=== PATIENT | female | born 1965 | race Caucasian/White ===

== ENCOUNTER → 2020-10-16 09:11 | Outpatient (BNVA) | payer MEDICARE, SELFPAY | PROVIDERS: PCP Family Medicine; Visit Provider Nurse Practitioner Family | DX: F41.9 Anxiety disorder, unspecified (principal); F32.9 Major depressive disorder, single episode, unspecified; I10 Essential (primary) hypertension; L08.9 Local infection of the skin and subcutaneous tissue, unspecified; F42.4 Excoriation (skin-picking) disorder | CPT/HCPCS: 80053; 80061; 84443; 85025 ==

== ENCOUNTER → 2021-01-22 09:52 | Outpatient (BNVA) | payer MEDICARE, MEDICAID, SELFPAY | PROVIDERS: PCP Nurse Practitioner Family; Visit Provider Nurse Practitioner Family | DX: M25.562 Pain in left knee (principal) | CPT/HCPCS: 73562 ==

== ENCOUNTER → 2021-02-12 13:51 | Outpatient (BNVA) | payer MEDICARE, MEDICAID, SELFPAY | PROVIDERS: PCP Nurse Practitioner Family; Referring Provider Nurse Practitioner Family; Visit Provider Orthopaedic Surgery | DX: M25.569 Pain in unspecified knee (principal); M17.12 Unilateral primary osteoarthritis, left knee | CPT/HCPCS: 73560 ==

== ENCOUNTER 2022-01-20 13:44 | Outpatient (CLI) | payer MEDICARE, MEDICAID, SELFPAY ==
--- NOTE | 2022-01-20 13:59 | CT_ITS ---
WS: [id number] CT CHEST, ABDOMEN AND PELVIS WITH CONTRAST. HISTORY: MALIGNANT NEOPLASM OF R KIDNEY TECHNIQUE: Contiguous 5 mm axial imaging performed through the chest, abdomen and pelvis with IV cont rast, oral contrast has been provided. Coronal and sagittal reformats chest. Coronal and sagittal ref ormats through the abdomen and pelvis. All CT scans at [facility] use at least one of these d ose optimization techniques: automated exposure control; mA and/or kV adjustment per patient size (in cludes targeted exams where dose is matched to clinical indication); or iterative reconstruction. CONTRAST: Visipaque 320; 95 mL IV. DLP: 1678.16 mGy.cm COMPARISON: 07/27/[address]: Mild pulmonary hyperexpansion with chronic emphysema, greatest in the upper lobes. No mass or nodule. No pneumonia. No mediastinal or hilar adenopathy. Heart size is normal. No pericardial or pleural effusions. Abdomen CT: Mildly enlarged liver with mild hepatic steatosis. No mass, metastatic disease or bile du ct dilatation. Normal portal vein. Gallbladder has been surgically removed. Normal pancreas and splee n. Prior RIGHT nephrectomy. Normal size LEFT kidney. There are multiple cystic masses in the central renal pelvis. These masses were present on the prior study from 2018. No solid mass identified. These may be parapelvic cysts. Mild calyceal prominence suggestive may be underlying very minimal obstruct ion of the kidney which is not progressed. No renal atrophy. LEFT adrenal glands are normal. Atherosc lerosis aorta. Mild stenosis proximal celiac axis. Normally distended stomach. No small bowel obstruction. Diffuse constipation. The appendix is normal. No ascites, mesenteric or pelvic adenopathy. Postsurgical changes along the anterior abdominal wall. Marked atrophy of the RIGHT rectus abdominous . Pelvic CT: Well-distended urinary bladder. No free fluid or adenopathy. Prior hysterectomy. Sclerotic foci LEFT hip, unchanged. CT/CT chest abd pel w con* IMPRESSION: 1. Status post RIGHT nephrectomy. No recurrent mass in the renal bed and no ad enopathy. 2. No metastatic lesions within the chest, abdomen or pelvis. 3. Prior hysterectomy and cholecystectomy. 4. No solid mass LEFT kidney. There are multiple cysts within the renal pelvis . There is minimal calyceal dilatation suggesting there may be a partial, chron ic UP junction obstruction. Very similar to the study from 07/27/2018. No renal atrophy. 5. Chronic emphysema.
[2022-01-20] MEDS: barium sulfate 450 mL Oral Susp PO (14:05)
[2022-01-20] MEDS: iodixanol 320 mg/mL 100mL Btl IV (15:38)
[2022-01-20 16:07] LABS: Basophils # 0.1 10^3/uL (0.0-0.1); Basophils % 0.7 %; Eosinophils # 0.2 10^3/uL (0.0-0.8); Hemoglobin 14.7 g/dL (11.5-15.3); Lymphocytes # 2.8 10^3/uL (0.8-4.8); Mean Corpuscular HGB Conc 30.6 g/dL (30.0-36.0); Mean Corpuscular Hemoglobin 30.6 pg (28.0-34.0); Mean Platelet Volume 10.6 fL (7.4-10.4); Monocytes # 0.6 10^3/uL (0.2-0.9); Monocytes % 5.5 %; Neutrophils % 67.4 %; Nucleated Red Blood Cells % 0 %; Platelet Count 323 10^3/cmm (130-400); White Blood Count 11.7 10^3/uL (4.0-10.0)
[2022-01-20 16:31] LABS: Albumin Level 3.4 g/dL (3.5-5.2); Blood Urea Nitrogen 7 mg/dL (6-20); Calcium 8.6 mg/dL (8.5-10.5); Carbon Dioxide 16 mmol/L (22-29); Glomerular Filtration Rate 56.9 mL/min (90-130); Glucose 74 mg/dL (65-115); Phosphorus 3.3 mg/dL (2.5-4.5)
[2022-01-20 17:03] LABS: Anion Gap 21.3 (5-19); Chloride 105 mmol/L (98-107); Potassium 5.3 mmol/L (3.5-5.1); Sodium 137 mmol/L (136-145)
== END 2022-01-20 13:45 | disposition home or self-care (01) ==
LOC: RAD 13:44
PROVIDERS: PCP Nurse Practitioner Family; Visit Provider Nurse Practitioner
DX: C64.1 Malignant neoplasm of right kidney, except renal pelvis (principal); Z90.5 Acquired absence of kidney; Z90.710 Acquired absence of both cervix and uterus; Z90.49 Acquired absence of other specified parts of digestive tract; J43.9 Emphysema, unspecified
CPT/HCPCS: 71260; 74177; 80069; 85025

== ENCOUNTER 2022-08-06 13:27 | Outpatient (CLI) | payer MEDICARE, MEDICAID, SELFPAY ==
[2022-08-06 14:00] VITALS: PULSE 109; RESP 18; O2SAT 97
[2022-08-06] MEDS: albuterol 2.5 mg/3 mL Neb INHALATION (14:00)
[2022-08-06 14:05] VITALS: PULSE 103
== END 2022-08-06 13:28 | disposition home or self-care (01) ==
PROVIDERS: PCP Nurse Practitioner Family; Visit Provider Family Medicine
DX: J44.1 Chronic obstructive pulmonary disease with (acute) exacerbation (principal)
CPT/HCPCS: 94060; 94726; 94729

== ENCOUNTER → 2022-11-05 10:24 | Outpatient (BNVA) | payer MEDICARE, MEDICAID, SELFPAY | PROVIDERS: PCP Family Medicine; Visit Provider Internal Medicine Pulmonary Disease | DX: R06.02 Shortness of breath (principal); J30.89 Other allergic rhinitis | CPT/HCPCS: 36415; 82785; 85025; 86003; 99204 ==

== ENCOUNTER → 2023-06-26 09:59 | Outpatient (BNVA) | payer MEDICARE, MEDICAID, SELFPAY | PROVIDERS: PCP Family Medicine; Referring Provider Family Medicine; Visit Provider Physician Assistant | DX: M25.511 Pain in right shoulder (principal); M75.41 Impingement syndrome of right shoulder | CPT/HCPCS: 20610; 73030; 99213; J3301 ==

== ENCOUNTER 2023-07-29 11:22 | Emergency (ER) | payer MEDICARE, MEDICAID, SELFPAY ==
[2023-07-29 11:31] VITALS: BP 141/83; PULSE 92; RESP 16; TEMP 36.6; O2SAT 94
--- NOTE | 2023-07-29 11:38 | XR_ITS ---
WS: [id number] Right knee, 3 views, 07/29/2023 Clinical Data: pain Comparison: None. Findings: No fractures or dislocations are seen. There is joint space narrowing medially and laterally with a s pur of the medial femoral condyle. The posterior right patella shows mild spurring. The soft tissues are unremarkable. Impression: Minimal osteoarthritis of the right knee Kellgren-Everardo Classification: grade 2 (minimal): definite osteophytes and possible joint space na rrowing
--- NOTE | 2023-07-29 12:36 | ED_ITS ---
HPI - Extremity Problem 2 General: Chief complaint: Extremity Injury, Upper Stated complaint: Right leg pain Time Seen by Provider: 07/29/23 11:38 Source: patient Mode of arrival: ambulatory History of Present Illness: 57-year-old female who presents to the e mergency room with complaints of right knee pain. She fell and twisted her knee 1 week ago had a popping sensation she has been ambulating on it since she has follow-up set up up with orthopedics she has not yet seen them. Initial x-rays and she was seen after the fall were normal. MD Complaint: joint pain Onset (ago): week(s) (1) Pain Consistency: constant Location: right and knee Quality: sharp Relieving factors: rest Exacerbating factors: range of motion, weight bearing, walking and palpation Associated symptoms: Deny arthralgias, chest pain, fever(s), myalgias, rash or short of breath Review of Systems 2 Const: Denies: fever(s) or chills Card: Denies: chest pain Musc: Reports: joint pain Skin/Breast: Denies: rash PFSH ED 2 PFSH: Medical History Environmental and seasonal allergies GERD (gastroesophageal reflux disease) PTSD (post-traumatic stress disorder) Surgical History Hx of cholecystectomy Hx of kidney removal right Hx of section Family History Father Hypertension Mother Hypertension Social History Smoking and tobacco/nicotine status: current every day tobacco/nicotine user cigarettes Packs smoked per day: 1 Years cigarettes smoked: 42 [ Other cigarette details: Started at 15] Second hand smoke exposure: No Alcohol intake: never Substance/Drug Use: current Substance/Drug use frequency: daily Adopted: No Caregiver/support person: No Lives independently: Yes Household members: significant other Housing: Manufactured/Mobile home Marital status: Single Number of children: 2 Highest education level completed: High School Graduate Pets and animals: No Course 2 Vital Signs: Vital signs: Vital Signs Temperature 98 F 07/29/23 13:14 Pulse Rate 92 07/29/23 13:14 Respiratory Rate 16 07/29/23 13:14 Blood Pressure 141/83 07/29/23 13:14 Pulse Oximetry 94 07/29/23 13:14 Oxygen Delivery Me thod Room Air 07/29/23 11:31 MDM - Extremity (Nontraumatic) Medical Decision Making Knee x-ray is negative. White count at 12.6, no significant left shift. Sed rate and CRP are not significantly elevated examination of the knee did not show evidence of large joint effusion or acute infection is not red or hot to the touch. Discharge patient home on a knee immobilizer and crutches. Her creatinine is normal she states she only has a solitary kidney. For short time she should be able to do a mild NSAID will give her diclofenac 75 twice a day and she has follow-up with set up with Ortho she should keep that appointment and remove keep the knee nonweightbearing until then. On exam there is no sign of DVT either. Medical Records I reviewed the patient's medical records. Lab Data I reviewed the patient's lab results. 07/29/23 12:56 07/29/23 12:56 Laboratory Results WBC 12.38 10^3/uL (3.29-11.43) H 07/29/23 12:56 RBC 5.04 10^6/uL (3.85-5.65) 07/29/23 12:56 Hgb 15.70 g/dL (11.27-16.99) 07/29/23 12:56 Hct 47.2 % (36-47) H 07/29/23 12:56 MCV 93.7 fl (85-98) 07/29/23 12:56 MCH 31.2 pg (27-33) 07/29/23 12:56 MCHC 33.3 g/dL (30-55) 07/29/23 12:56 RDW 13.5 % (12.1-15.1) 07/29/23 12:56 Plt Count 347 10^3/cmm (157-399) 07/29/23 12:56 MPV 9.2 fL (7.4-10.4) 07/29/23 12:56 Neut % (Auto) 76.0 % 07/29/23 12:56 Lymph % (Auto) 17.4 % 07/29/23 12:56 [place] % (Auto) 4.3 % 07/29/23 12:56 Eos % (Auto) 1.4 % 07/29/23 12:56 Baso % (Auto) 0.7 % 07/29/23 12:56 Neut # (Auto) 9.41 10^3/uL (1.8-7.7) H 07/29/23 12:56 Lymph # (Auto) 2.2 10^3/uL (0.8-4.8) 07/29/23 12:56 [place] # (Auto) 0.5 10^3/uL (0.2-0.9) 07/29/23 12:56 Eos # (Auto) 0.2 10^3/uL (0.0-0.8) 07/29/23 12:56 Baso # (Auto) 0.1 10^3/uL (0.0-0.1) 07/29/23 12:56 Nucleated RBC % (auto) 0 % 07/29/23 12:56 Nucleated RBCs # 0.0 /100WBC 07/29/23 12:56 ESR 16 mm/hr (0-15) H 07/29/23 12:56 Sodium 138 mmol/L (136-145) 07/29/23 12:56 Potassium 3.9 mmol/L (3.5-5.1) 07/29/23 12:56 Chloride 103 mmol/L (98-107) 07/29/23 12:56 Carbon Dioxide 27 mmol/L (22-29) 07/29/23 12:56 Anion Gap 11.9 (5-19) 07/29/23 12:56 BUN 11 mg/dL (6-20) 07/29/23 12:56 Creatinine 0.9 mg/dL (0.5-0.9) 07/29/23 12:56 GFR Calculation 64.1 mL/min (90-130) L 07/29/23 12:56 Glucose 110 mg/dL (65-115) 07/29/23 12:56 Calculated Osmolality 286 mOsm/kg (285-295) 07/29/23 12:56 Calcium 9.0 mg/dL (8.5-10.5) 07/29/23 12:56 Total Bilirubin 0.3 mg/dL (0.15-1.2) 03/20/24 12:56 AST 21 U/L (0-32) 07/29/23 12:56 ALT 22 U/L (0-33) 07/29/23 12:56 Alkaline Phosphatase 125 U/L (35-105) H 07/29/23 12:56 C-Reactive Protein 3.0 mg/L (0.0-4.9) 07/29/23 12:56 Total Protein 7.4 g/dL (6.6-8.7) 07/29/23 12:56 Albumin 3.7 g/dL (3.5-5.2) 07/29/23 12:56 Globulin 3.7 g/dL (1.3-4.6) 07/29/23 12:56 All radiology interpretation(s) finalized by discharge Discharge Plan Discharge Patient Disposition: Home Clinical Impression: Sprain of right knee Condition: Stable Prescriptions: New diclofenac sodium 75 mg tablet,delayed release (DR/EC) 75 mg PO Q12H PRN (Reason: pain) Qty: 20 0RF No Action pregabalin 100 mg capsule 100 mg PO BID paroxetine HCl 20 mg tablet 20 mg PO DAILY 30 Days Qty: 30 2RF Trelegy Ellipta 100-62.5-25 mcg blister with device 1 inh inhalation DAILY hydroxyzine HCl 50 mg tablet 50 mg PO DAILY alprazolam 0.5 mg tablet 0.5 mg PO DAILY loratadine [Allergy Relief (loratadine)] 10 mg tablet 10 mg PO DAILY Atrovent HFA 17 mcg/actuation HFA aerosol inhaler 2 puff inhalation Q8H PRN (Reason: shortness of breath or wheezing) Qty: 12.9 6RF montelukast 10 mg tablet 10 mg PO DAILY Qty: 30 2RF lisinopril 20 mg tablet 20 mg PO DAILY Qty: 30 2RF albuterol sulfate 90 mcg/actuation HFA aerosol inhaler 2 puff inhalation Q4H PRN (Reason: shortness of breath or wheezing) Qty: 6.7 2RF cyclobenzaprine 10 mg tablet 10 mg PO TID omeprazole 40 mg capsule,delayed release(DR/EC) See Rx Instructions .ROUTE .COMPLEX Rx Instructions: TAKE ONE CAPSULE BY MOUTH 30 MINUTES BEFORE MORNING MEAL ONCE DAILY baclofen 10 mg tablet 10 mg PO TID prazosin 2 mg capsule 2 mg PO BEDTIME Mavyret 100-40 mg tablet 3 tab PO DAILY Discharge Orders: Discharge ED (Routine); Ordered 07/29/23 Ordered By: Alexandr Prasad Referrals: JAIME WEBER MD [Primary Care Provider] - Discharge Diet: Usual diet Discharge Activity: Limit activity as instructed Patient Instructions: Opioid Safety, Pain Management Activity Restrictions/Additional Instructions: Thank you for choosing [facility] for your healthcare needs today. Please realize this is an emergency room and that we are providing you with a medical screening exam and this may not be complete and all inclusive of all the testing and or work up that you may need to determine your ailment or severity of your illness. It is very important that you follow up as instructed or that you return to the Emergency Department should you have concerns or if your condition changes or worsens in any way. You are seen emergency room today for right knee pain. X-ray shows arthritic changes but no acute fractures. Recommend knee immobilizer and nonweightbearing till follow-up with orthopedics. For a short time you can use diclofenac 1 tablet twice a day. Coding Level of Care Code ED High Pressure Cleaner for Chey Alvarez
[2023-07-29 13:00] LABS: Basophils # 0.1 10^3/uL (0.0-0.1); Basophils % 0.7 %; Eosinophils # 0.2 10^3/uL (0.0-0.8); Eosinophils % 1.4 %; Hematocrit 47.2 % (36-47); Lymphocytes # 2.2 10^3/uL (0.8-4.8); Lymphocytes % 17.4 %; Mean Corpuscular HGB Conc 33.3 g/dL (30-55); Mean Corpuscular Hemoglobin 31.2 pg (27-33); Mean Corpuscular Volume 93.7 fl (85-98); Mean Platelet Volume 9.2 fL (7.4-10.4); Monocytes # 0.5 10^3/uL (0.2-0.9); Monocytes % 4.3 %; Neutrophils # 9.41 10^3/uL (1.8-7.7); Nucleated Red Blood Cells % 0 %; Platelet Count 347 10^3/cmm (157-399); Red Blood Count 5.04 10^6/uL (3.85-5.65); Red Cell Distribution Width 13.5 % (12.1-15.1); White Blood Count 12.38 10^3/uL (3.29-11.43)
[2023-07-29 13:05] LABS: Erythrocyte Sedimentation Rate 16 mm/hr (0-15)
[2023-07-29] MEDS: metoclopramide 5 mg/mL SDV 2 mL 10 MG IVP (13:08)
[2023-07-29] MEDS: HYDROcodone-acetaminophen 5-325 mg Tablet 1 TAB PO (13:09)
[2023-07-29 13:14] VITALS: BP 141/83; PULSE 92; RESP 16; TEMP 36.6; O2SAT 94
[2023-07-29 13:21] LABS: Alanine Aminotransferase 22 U/L (0-33); Albumin Level 3.7 g/dL (3.5-5.2); Alkaline Phosphatase 125 U/L (35-105); Anion Gap 11.9 (5-19); Aspartate Amino Transferase 21 U/L (0-32); Blood Urea Nitrogen 11 mg/dL (6-20); Carbon Dioxide 27 mmol/L (22-29); Chloride 103 mmol/L (98-107); Creatinine Clr Calc Pharmacy 78.2867; Globulin 3.7 g/dL (1.3-4.6); Glomerular Filtration Rate 64.1 mL/min (90-130); Glucose 110 mg/dL (65-115); Osmolality Calculated 286 mOsm/kg (285-295); Potassium 3.9 mmol/L (3.5-5.1); Sodium 138 mmol/L (136-145); Total Bilirubin 0.3 mg/dL (0.15-1.2); Total Protein 7.4 g/dL (6.6-8.7)
== END 2023-07-29 13:15 | disposition home or self-care (01) ==
PROVIDERS: Emergency Provider Family Medicine; PCP Family Medicine
DX: S83.91XA Sprain of unspecified site of right knee, initial encounter (principal); F17.210 Nicotine dependence, cigarettes, uncomplicated; X50.1XXA Overexertion from prolonged static or awkward postures, initial encounter
CPT/HCPCS: 29530; 36415; 73562; 80053; 85025; 85651; 86140; 96374; 99284; J2765

== ENCOUNTER → 2023-08-18 10:06 | Outpatient (BNVA) | payer MEDICARE, MEDICAID, SELFPAY | PROVIDERS: PCP Family Medicine; Visit Provider Student in an Organized Health Care Education/Training Program | DX: M75.41 Impingement syndrome of right shoulder (principal) | CPT/HCPCS: 99214 ==

== ENCOUNTER 2023-08-24 06:00 | Outpatient (RCR) | payer MEDICARE, MEDICAID, SELFPAY | END 2023-09-08 23:59 | disposition home or self-care (01) | LOC: APT 06:00 | PROVIDERS: Visit Provider Student in an Organized Health Care Education/Training Program | DX: M75.41 Impingement syndrome of right shoulder (principal) | CPT/HCPCS: 97110; 97161 ==

== ENCOUNTER 2023-10-09 08:08 | Outpatient (CLI) | payer MEDICARE, MEDICAID, SELFPAY ==
--- NOTE | 2023-10-09 08:11 | MR_ITS ---
WS: [id number] MRI RIGHT SHOULDER ARTHROGRAM HISTORY: labral tear, bicep tendon tear COMPARISON: 06/26/2023 radiograph TECHNIQUE: Pre and postcontrast imaging. Gadolinium mixture was injected under fluoroscopy. Coronal T 1 fat sat, sagittal T2 fat sat, coronal T2 fat sat, axial proton density, axial T1 nonfat saturation views are submitted. Prearthrogram: Moderate AC joint arthritis encroaching upon the supraspinatus tendon. Small amount of fluid in the subacromial and subdeltoid bursa. No os acromion. Increased fluid in the biceps tendon sheath. In the bicipital groove there is a very small caliber residual biceps tendon. More normal kishore iber of the biceps tendon is reidentified at the level of the proximal humeral diaphysis. The more pr oximal tendon is very thin caliber and nearly completely torn. High riding humeral head. Moderate narrowing of the glenohumeral joint. Distal supraspinatus tendinop athy. No definite tendon tear. Degenerative changes in the labrum but no tear identified on the prear throgram imaging. There is significant narrowing of the coracohumeral interval with encroachment upon the subscapularis tendon by osteophytes. Post arthrogram: Contrast does not extend external to the joint into the subacromial or subdeltoid bu rsa. There is extensive contrast filling the biceps tendon sheath. Again a normal biceps tendon is no t identified. There may be a very small residual portion of the tendon present. Biceps tendon becomes apparent near the proximal diaphysis. There is contrast undercutting the superior labrum consistent with a superior labral tear. The remaining labrum is negative. No loose bodies are identified. MR/MR shoulder RT wo/w con [id number] IMPRESSION: 1. Abnormal biceps tendon. Normal diameter of the biceps tendon is identified in the sheath at the level of the proximal humeral diaphysis. There may be a ve ry tiny residual piece of tendon present in the bicipital groove but this is mi nimal. Consistent with high-grade if not complete tear of the biceps tendon wit h retraction. Increased fluid and contrast in the biceps tendon sheath. 2. Simple superior labral tear. 3. Moderate glenohumeral joint narrowing. 4. Moderate coracohumeral interval narrowing. 5. Moderate AC joint arthritis.
--- NOTE | 2023-10-09 08:30 | IR_ITS ---
WS: [id number] RIGHT SHOULDER ARTHROGRAM UNDER FLUOROSCOPY. PRIOR TO MRI EVALUATION. HISTORY: labral tear, bicep tendon tear COMPARISON: None available. FLUOROSCOPY TIME: 1min [id number] # of spot films: 2 Procedure, risks and complications were explained to the patient. Consent has been obtained. Under fluoroscopic guidance the skin is marked over the medial superior third of the humeral head, cl eansed with ChloraPrep and anesthetized with lidocaine. 22-gauge spinal needle is inserted to the cor jessica of the humeral head. Test injection with Omnipaque reveals the needle is appropriately positioned in the joint. A mixture of 10 cc sterile saline, 5 cc Omnipaque and 0.1 mmol gadolinium are injected under fluoroscopic guidance. Patient tolerated the joint distention well. No complications. IR/IR arthrogram shoulderRT [id number] IMPRESSION: Uncomplicated RIGHT shoulder joint injection prior to MRI.
[2023-10-09] MEDS: gadobenate dimeglumine 20 mL vial 0.200000000000000011 ML XX (09:52)
[2023-10-09] MEDS: iohexol 240 mg/mL 50 mL Btl INTRA-ARTI (09:55)
== END 2023-10-09 08:09 | disposition home or self-care (01) ==
LOC: RAD 08:09
PROVIDERS: PCP Family Medicine; Visit Provider Student in an Organized Health Care Education/Training Program
DX: M75.41 Impingement syndrome of right shoulder (principal); S43.431A Superior glenoid labrum lesion of right shoulder, initial encounter; X58.XXXA Exposure to other specified factors, initial encounter
CPT/HCPCS: 23350; 73223; 77002; A9577; Q9966

== ENCOUNTER → 2023-11-27 09:54 | Outpatient (BNVA) | payer MEDICARE, MEDICAID, SELFPAY | PROVIDERS: PCP Family Medicine; Visit Provider Student in an Organized Health Care Education/Training Program | DX: M75.41 Impingement syndrome of right shoulder; S46.101A Unspecified injury of muscle, fascia and tendon of long head of biceps, right arm, initial encounter; X58.XXXA Exposure to other specified factors, initial encounter | CPT/HCPCS: 99213 ==

== ENCOUNTER → 2023-12-24 11:21 | Outpatient (BNVA) | payer MEDICARE, MEDICAID, SELFPAY | PROVIDERS: PCP Family Medicine; Visit Provider Physician Assistant | DX: M25.561 Pain in right knee (principal); M25.562 Pain in left knee; M17.0 Bilateral primary osteoarthritis of knee; M23.303 Other meniscus derangements, unspecified medial meniscus, right knee | CPT/HCPCS: 20610; 73560; 73565; 99213; J3301 ==

== ENCOUNTER → 2024-04-26 10:00 | Outpatient (BNVA) | payer MEDICAID, MEDICARE, SELFPAY | PROVIDERS: PCP Family Medicine; Visit Provider Physician Assistant | DX: M23.303 Other meniscus derangements, unspecified medial meniscus, right knee (principal); M17.0 Bilateral primary osteoarthritis of knee | CPT/HCPCS: 20610; 99213; J3301 ==

== ENCOUNTER 2024-05-09 11:00 | Outpatient (CLI) | payer MEDICARE, MEDICAID, SELFPAY ==
--- NOTE | 2024-05-09 11:00 | MR_ITS ---
WS: [id number] MRI LEFT KNEE HISTORY: derangment of medial meniscus COMPARISON: 12/24/2023 radiograph Anterior cruciate ligament: Abnormal signal throughout the ACL. There is marked thickening and increa sed T2 signal in the ACL. Majority the fibers are intact. This is most consistent with advanced mucoi d degeneration. Partial tear would be difficult to exclude but the majority of the fibers appear inta ct. Posterior cruciate ligament: Intact. Medial collateral ligament: Intact. Posterior lateral corner structures: Intact. Medial menisci: Intrasubstance degeneration of the posterior horn. Increased T2 signal doesn't defini tely extend to an articular surface. Anterior horn is normal. Lateral meniscus: Small caliber anterior horn is abnormal shape consistent with a complex tear. Poste rior horn is small caliber but no tear is identified. Extensor mechanism: Distal quadriceps tendon and patellar tendons are intact. Fluid and soft tissue: Moderate-sized suprapatellar joint effusion. Intra-articular body measures 2.5 x 1.0 x 1.6 cm in the suprapatellar joint effusion. Small Barron's cyst. Osseous and articular structures: Patellofemoral compartment: Very slight lateral subluxation of the patella. Subchondral edema along t he patellar eminence. Mild diffuse chondromalacia, greatest involving the lateral patellar facet. Medial compartment: Minimal narrowing of the medial compartment with mild diffuse chondromalacia. No full-thickness cartilage defect. Small amount of marrow edema at the base of the tibial spines. Lateral compartment: Moderate narrowing of the lateral compartment with moderate diffuse chondromalac ia. Joint space narrowing with marginal osteophytes. No marrow edema. There is a full-thickness defec t in the cartilage along the weightbearing surface of the femoral condyle. Focal delamination suspect ed along the weightbearing surface of the femoral condyle. MR/MR knee LT wo con* [id number] IMPRESSION: 1. Abnormal signal anterior horn of the lateral meniscus with a small caliber meniscus consistent with a complex tear. 2. Diffuse signal abnormality throughout the ACL consistent with advanced muco id degeneration. 3. Moderate size suprapatellar joint effusion with intra-articular body. Large intra-articular body measures 2.5 x 1.0 x 1.6 cm. 4. Small Barron's cyst. 5. Mild diffuse chondromalacia lateral patellar facet. 6. Lateral compartment: Moderate joint space narrowing lateral compartment wit h moderate chondromalacia. Additional area of delamination involving the weight bearing surface of the femoral condyle cartilage likely. 7. Mild narrowing the medial compartment with mild diffuse chondromalacia.
== END 2024-05-09 11:11 | disposition home or self-care (01) ==
PROVIDERS: PCP Family Medicine; Visit Provider Physician Assistant
DX: M23.304 Other meniscus derangements, unspecified medial meniscus, left knee (principal); R93.89 Abnormal findings on diagnostic imaging of other specified body structures; M71.22 Synovial cyst of popliteal space [Baker], left knee; M22.42 Chondromalacia patellae, left knee; M25.762 Osteophyte, left knee
CPT/HCPCS: 73721

== ENCOUNTER → 2024-06-15 09:47 | Outpatient (BNVA) | payer MEDICARE, MEDICAID, SELFPAY | PROVIDERS: PCP Family Medicine; Visit Provider Student in an Organized Health Care Education/Training Program | DX: S83.207A Unspecified tear of unspecified meniscus, current injury, left knee, initial encounter (principal); M23.42 Loose body in knee, left knee; X58.XXXA Exposure to other specified factors, initial encounter | CPT/HCPCS: 99214 ==

== ENCOUNTER 2024-11-17 06:09 | Day surgery (SDC) | payer MEDICARE, MEDICAID, SELFPAY ==
[2024-11-17] VITALS (11 sets, daily range): BP systolic 103–144; BP diastolic 67–93; PULSE 68–77; RESP 10–19; TEMP 36.1–36.3; O2SAT 94–97; BMI 34.3
[2024-11-17] MEDS: acetaminophen 1,000 MG/100 ML PIGGYBACK 400 MG IV (06:34)
--- NOTE | 2024-11-17 06:47 | ANES.PREANE2 ---
Pre-Anesthetic Assessment Height/Weight: Height 1.68 m Weight 96.615 kg Temp Pulse Resp BP Pulse Ox O2 Del Method 97.1 F L 73 17 144/87 95 Room Air 11/17/24 06:23 11/17/24 06:23 11/17/24 06:23 11/17/24 06:23 11/17/24 06:23 11/17/24 06:24 Operation Date: 11/17/24 07:00 Proposed Procedures p Knee Arthroscopy w/ Meniscectomy & Debridement(Left) - Tyree Thierry, DO s Removal Loose Bodies Loose Body Removal(Left) - Tyree Thierry, DO s Chondroplasty(Left) - Tyree Crowderatt, DO Familial anesthetic complications: PONV Was Beta Abi taken within 24 hours: N/A Was Clonidine taken within 24 hours: N/A Last intake: Intake Last Liquid Date 11/16/24 Last Liquid Time 23:00 Last Solid Date 11/16/24 Last Solid Time 19:00 Social No alcohol and No tobacco Exam alert, oriented x 3, clear to auscultation bilaterally and regular rate & rhythm Airway Mallampati: Class II Dentition: false CV/HEM Hypertension GI Gastroesophageal Reflux Disease Anesthetic Plan ASA status: 3 Anesthesia: General Risk of > 500 ml blood loss (7ml/kg in children): No Medications/Allergies Home Medications ?Medication ?Instructions ?Recorded ?Confirmed ?Last Taken ?Type pregabalin 100 mg capsule 100 mg PO BID 10/16/20 11/17/24 11/17/24 History paroxetine HCl 20 mg tablet 20 mg PO DAILY 30 days #30 tabs 12/25/20 11/17/24 11/17/24 Rx albuterol sulfate 90 mcg/actuation 2 puff inhalation Q4H PRN 01/11/21 11/17/24 11/17/24 Rx aerosol inhaler shortness of breath or wheezing #6.7 grams lisinopril 20 mg tablet 20 mg PO DAILY #30 tabs 01/11/21 11/16/24 11/16/24 Rx montelukast 10 mg tablet 10 mg PO DAILY #30 tabs 01/11/21 11/16/24 11/16/24 Rx alprazolam 0.5 mg tablet 0.5 mg PO DAILY 11/05/22 11/17/24 11/17/24 History fluticasone fur. 100 mcg-umeclid 1 inh inhalation DAILY 11/05/22 11/17/24 11/17/24 History 62.5 mcg-vilant 25 mcg inhalat.powder (Trelegy Ellipta) hydroxyzine HCl 50 mg tablet 50 mg PO DAILY 11/05/22 11/16/24 11/16/24 History loratadine 10 mg tablet (Allergy 10 mg PO DAILY 11/05/22 11/16/24 11/16/24 History Relief (loratadine)) ipratropium bromide 17 2 puff inhalation Q8H PRN 11/13/22 11/17/24 11/17/24 Rx mcg/actuation HFA aerosol inhaler shortness of breath or wheezing (Atrovent HFA) #12.9 grams baclofen 10 mg tablet 10 mg PO TID 07/29/23 11/16/24 11/16/24 History cyclobenzaprine 10 mg tablet 10 mg PO TID 07/29/23 11/16/24 11/16/24 History diclofenac sodium 75 mg 75 mg PO Q12H PRN pain #20 tabs 07/29/23 11/16/24 Unknown Rx tablet,delayed release omeprazole 40 mg capsule,delayed 40 mg PO DAILY 07/29/23 11/16/24 11/16/24 History release Allergies Allergy/AdvReac Type Severity Reaction Status Date / Time atorvastatin Allergy ALGY-Joint Verified 11/17/24 06:18 Pain buspirone Allergy ALGY-Rash Verified 11/17/24 06:18 codeine Allergy ADR-Nausea Verified 11/17/24 06:18 escitalopram (From Lexapro) Allergy ADR-Itching Verified 11/17/24 06:18 Current Medications Generic Name Dose Route Start Last Admin Trade Name Freq PRN Reason Stop Dose Admin Sodium Chloride 1,000 mls @ 30 mls/hr 11/17/24 06:15 11/17/24 06:34 Sodium Chloride 0.9% IV 11/18/24 06:14 30 mls/hr .Q24H LILY Administration PFSH Anesthesia Medical History (Updated 06/22/24 @ 21:41 by Tyree Guadarrama DO) Environmental and seasonal allergies GERD (gastroesophageal reflux disease) PTSD (post-traumatic stress disorder) Surgical History Hx of cholecystectomy Hx of kidney removal right Hx of section Family History Father Hypertension Mother Hypertension Social History Smoking and tobacco/nicotine status: current every day tobacco/nicotine user cigarettes Packs smoked per day: 1 Years cigarettes smoked: 42 [ Other cigarette details: Started at 15] Second hand smoke exposure: No Alcohol intake: never Substance/Drug Use: current Substance/Drug use frequency: daily Adopted: No Caregiver/support person: No Lives independently: Yes Household members: significant other Housing: Manufactured/Mobile home Marital status: Single Number of children: 2 Highest education level completed: High School Graduate Pets and animals: No
--- NOTE | 2024-11-17 06:59 | W.PM.OPSFHP ---
Same Day Surgery H&P Indication for Procedure/HPI DATE OF PROCEDURE: November 17, 2024 CHIEF COMPLAINT/INDICATIONFOR SURGICAL PROCEDURE: Left knee lateral meniscus tear, loose body, chondromalacia PREOP DIAGNOSIS: Left knee lateral meniscus tear, loose body, chondromalacia PLANNED PROCEDURE: Operation Date: 11/17/24 07:00 Proposed Procedures p Knee Arthroscopy w/ Meniscectomy & Debridement(Left) - Tyree Saguache, DO s Removal Loose Bodies Loose Body Removal(Left) - Tyree Saguache, DO s Chondroplasty(Left) - Tyree Thierry, DO Medications/Allergies* Home Medications ?Medication ?Instructions ?Recorded ?Confirmed ?Type pregabalin 100 mg capsule 100 mg PO BID 10/16/20 11/17/24 History alprazolam 0.5 mg tablet 0.5 mg PO DAILY 11/05/22 11/17/24 History fluticasone fur. 100 mcg-umeclid 1 inh inhalation DAILY 11/05/22 11/17/24 History 62.5 mcg-vilant 25 mcg inhalat.powder (Trelegy Ellipta) hydroxyzine HCl 50 mg tablet 50 mg PO DAILY 11/05/22 11/16/24 History loratadine 10 mg tablet (Allergy 10 mg PO DAILY 11/05/22 11/16/24 History Relief (loratadine)) baclofen 10 mg tablet 10 mg PO TID 07/29/23 11/16/24 History cyclobenzaprine 10 mg tablet 10 mg PO TID 07/29/23 11/16/24 History omeprazole 40 mg capsule,delayed 40 mg PO DAILY 07/29/23 11/16/24 History release Allergies/Adverse Reactions Allergy/AdvReac Type Severity Reaction Status Date / Time atorvastatin Allergy ALGY-Joint Verified 11/17/24 06:18 Pain buspirone Allergy ALGY-Rash Verified 11/17/24 06:18 codeine Allergy ADR-Nausea Verified 11/17/24 06:18 escitalopram (From Lexapro) Allergy ADR-Itching Verified 11/17/24 06:18 NSAIDS (Non-Steroidal Allergy Unknown Verified 11/17/24 07:00 Anti-Inflamma Current Medications: Generic Name Dose Route Start Last Admin Trade Name Freq PRN Reason Stop Dose Admin Sodium Chloride 1,000 mls @ 30 mls/hr 11/17/24 06:15 11/17/24 06:34 Sodium Chloride 0.9% IV 11/18/24 06:14 30 mls/hr .Q24H LILY Administration Pertinent History/Comorbid Conditions* Medical History (Updated 06/22/24 @ 21:41 by Tyree Guadarrama DO) Environmental and seasonal allergies GERD (gastroesophageal reflux disease) PTSD (post-traumatic stress disorder) Surgical History (Updated 10/16/20 @ 13:21 by MEDARDO Holcomb) Hx of cholecystectomy Hx of kidney removal right Hx of section Family History (Updated 10/16/20 @ 08:42 by Kristen Adrian LPN) Hypertension Father Mother Social History Smoking and tobacco/nicotine status: current every day tobacco/nicotine user cigarettes Packs smoked per day: 1 Years cigarettes smoked: 42 [ Other cigarette details: Started at 15] Second hand smoke exposure: No Alcohol intake: never Substance/Drug Use: current Substance/Drug use frequency: daily Adopted: No Caregiver/support person: No Lives independently: Yes Household members: significant other Housing: Manufactured/Mobile home Marital status: Single Number of children: 2 Highest education level completed: High School Graduate Pets and animals: No Pertinent Exam Findings alert, oriented x 3, operative site marked and procedure specific exam findings Please refer to detailed orthopedic examination on 06/15/2024 listed below: left Knee exam -Positive joint effusion -ROM 0-110 degrees -Medial and lateral joint line tenderness -Negative Rene's -Negative valgus, negative varus - positive Yi's test with pain but no clicking -Right leg positive Yi's test Recommendations Risks and benefits of procedure reviewed and Patient/family agree to proceed Surgery/Procedure today Other Plans: Proceed to the OR today for left knee diagnostic and surgical arthroscopy with partial lateral meniscectomy versus repair with loose body removal and chondroplasty . Patient once again understands the ins and outs procedure the risk benefits complication alternatives of surgery through shared decision making patient like to proceed with surgical intervention. All questions have been answered at this time. Coding Level of Care Code Acute Code for Chey Alvarez
[2024-11-17] MEDS: ceFAZolin 2,000 MG in sodium chloride 0.9% (plus) 50 ML 100 MG IV (07:03)
[2024-11-17] MEDS: lidocaine-epi 2% PF 1:200,000 20 mL SDV 40 ML XX (07:42)
--- NOTE | 2024-11-17 08:07 | W.PM.BPON ---
Date of Procedure: 11/17/2024 Surgeon: Tyree Guadarrama DO Manager Basketball(s): Christopher Guadarrama PA-C Procedure(s) performed: Left knee diagnostic and surgical arthroscopy with partial medial meniscectomy Left knee diagnostic and surgical arthroscopy with partial lateral meniscectomy Left knee diagnostic and surgical arthroscopy with ACL debridement Left knee diagnostic and surgical arthroscopy with lateral and patellofemoral compartment chondroplasty Left knee diagnostic and surgical arthroscopy with extensive synovectomy Left knee diagnostic and surgical arthroscopy with loose body removal x 2 (3 cm x 2 cm x 1 cm & 1.5 cm x 1 cm x 1 cm) Findings of the procedure(s): Patient underwent procedure as planned without issues or complications taken recovery in stable condition underwent procedure as stated above. Patient was found to have 2 loose bodies that were removed. Estimated blood loss: 5 mL Specimen(s) removed: 2 cartilage loose bodies removed but not sent for specimen Post-operative diagnosis: Left knee chondromalacia, medial and lateral meniscus tear, degenerative ACL tearing, extensive synovitis, loose bodies x 2
--- NOTE | 2024-11-17 08:09 | PM.OP ---
Operative Report Date of procedure: November 17, 2024 Surgeon: Tyree Guadarrama DO Printed Circuit Board Reworker: Christopher Guadarrama PA-C: PA was necessary for assistance in this case with leg positioning, assistance with arthroscopic instrumentation, as well as assistance with wound closure and dressing application. Procedure: Preoperative diagnosis: Left knee lateral meniscus tear, loose body, chondromalacia Post-op diagnosis: Left knee chondromalacia, medial and lateral meniscus tear, degenerative ACL tearing, extensive synovitis, loose bodies x 2 Procedure done: Left knee diagnostic and surgical arthroscopy with partial medial meniscectomy Left knee diagnostic and surgical arthroscopy with partial lateral meniscectomy Left knee diagnostic and surgical arthroscopy with ACL debridement Left knee diagnostic and surgical arthroscopy with lateral and patellofemoral compartment chondroplasty Left knee diagnostic and surgical arthroscopy with extensive synovectomy Left knee diagnostic and surgical arthroscopy with loose body removal x 2 (3 cm x 2 cm x 1 cm and 1.5 cm x 1 cm x 1 cm) Surgeon: Tyree Guadarrama DO Estimated blood loss: 5 mL Tourniquet: No tourniquet was used IV fluids: See anesthesia record Complications: None Findings: See operative report narrative Condition: stable Disposition: same day Brief History: Patient is a 59-year-old female with Left?knee?pain.? Patient has failed conservative treatment who has been worked up for Left??knee?pain in the outpatient setting. MRI findings consistent with tear of the lateral meniscus and loose body. Talked in the office about treatment options patient would like to proceed with a left knee diagnostic and surgical arthroscopy with partial lateral meniscectomy versus repair with loose body removal and chondroplasty. Patient understand the ins and outs of the procedure the risk benefits complication alternatives to treatment options.? Understanding risk of surgery pt agree to proceed with surgical intervention.? Patient understand this may not provide patient with complete symptomatic relief of? pain as patient does have some underlying arthritis.? Understanding this and patient agree to proceed with surgical intervention all questions answered. MR/MR knee LT wo con* [id number] IMPRESSION: 1. Abnormal signal anterior horn of the lateral meniscus with a small caliber meniscus consistent with a complex tear. 2. Diffuse signal abnormality throughout the ACL consistent with advanced mucoid degeneration. 3. Moderate size suprapatellar joint effusion with intra-articular body. Large intra-articular body measures 2.5 x 1.0 x 1.6 cm. 4. Small Barron's cyst. 5. Mild diffuse chondromalacia lateral patellar facet. 6. Lateral compartment: Moderate joint space narrowing lateral compartment with moderate chondromalacia. Additional area of delamination involving the weightbearing surface of the femoral condyle cartilage likely. 7. Mild narrowing the medial compartment with mild diffuse chondromalacia. Procedure: Patient seen and evaluated in the preoperative holding area.? Consent was reviewed and signed with patient.? Correct extremity was then marked.? Patient seen evaluated Anesthesia Department once cleared for surgery patient was taken back to the operative suite.? Patient was transported onto the OR table in supine position.? All bony prominences well-padded patient was appropriate secured to the bed.? Once appropriately anesthetized a nonsterile tourniquet was applied to the Left thigh.? The Left lower extremity was then prepped and draped in standard orthopedic fashion.? Final timeout performed.? Patient received appropriate preoperative antibiotics. Patient received local anesthetic of lidocaine with epinephrine into the joint as well as around the portal sites.? No tourniquet was inflated A standard 2 portal vertical incision diagnostic and surgical arthroscopy of the Left?knee?was performed in standard fashion.? Small stab incision made in the inferolateral portal introduced trocar and arthroscope into the suprapatellar pouch.? Suprapatellar pouch was subsequently visualized and found to have significant synovitis but no loose bodies.? Patient had noticeable significant inflamed infrapatellar fat pad and thickening hypertrophic within the patellofemoral compartment.? ?The medial gutter was free of loose bodies I then introduced the arthroscope into the medial compartment.? Within the medial compartment I then established my inferior medial working portal utilizing spinal needle outside in technique.? Once established I then visualized our articular cartilage of the medial compartment with a valgus stress.? Patient was found to have grade 2-3 chondromalacia throughout the medial compartment.? Next I inspected the meniscus.? With an arthroscopic probe was utilized to visual? all aspects of the meniscus.? Meniscal root was found to be intact.? Patient was found to have a small radial flap tear at the body to posterior horn junction. This was small in the white white zone. Plan was for a partial medial meniscectomy.? I then subsequently introduced a basket forceps as well as arthroscopic shaver to perform a partial medial meniscectomy to stable meniscal tissue and then utilized a thermal wand to anneal the edges.? Next, I then performed a synovectomy of the medial compartment.? This completed medial compartment work. Next a introduced the arthroscope to the intercondylar notch.? PCL and ACL were intact. The ACL did have some partial tearing anterior and subsequently patient underwent gentle ACL debridement. patient had significant thickening of the infrapatellar fat pad spanning into the medial and lateral compartments.? I then performed an extensive synovectomy with the arthroscopic shaver of the patellofemoral medial and lateral compartments as well as the intercondylar notch. Advance the?scope?into the retrocruciate space and no loose bodies were found. Next I introduced the arthroscope into the lateral compartment the lateral compartment was found to have grade 3-4 chondromalacia.? Lateral meniscus was found to have a tear in the anterior horn to the body of the lateral meniscus the root was intact. At this point in time I then subsequently planned for a partial lateral meniscectomy. I utilized basket forceps and arthroscopic shaver to perform a partial lateral meniscectomy to stable meniscal tissue and then utilized a thermal wand to kneel the edges this is an completed I then did perform a lateral compartment chondroplasty with arthroscopic shaver and thermal wand to take this to stable articular tissue as there was some unstable articular cartilage pieces. Once again patient had grade 3-4 chondromalacia laterally. This completed my work of the lateral compartment and then performed a synovectomy of the lateral compartment.? Next of the arthroscope was placed into the lateral gutter and patient was found to have an adhered loose body 1.5 cm x 1 cm x 1 cm this was then grabbed with an arthroscopic grasper and then removed atraumatically through the medial portal. At this point in time I then identified an additional even larger size loose body of the superior patellar pouch lateral aspect and this was 3 cm x 2 cm x 1 cm I had extended my incision on the medial portal and then utilized the arthroscopic grasper and remove this loose body under direct visualization with arthroscopic imaging. Finally I reintroduced the arthroscope into the patellofemoral compartment.? The patellofemoral was found to have grade 3-4 chondromalacia of the patellofemoral compartment.? At this point I utilized arthroscopic shaver as well as thermal wand to perform extensive synovectomy of the patellofemoral compartment. I also utilized arthroscopic shaver and thermal wand to perform the patellofemoral compartment chondroplasty to stable articular tissue as there was unstable articular pieces. This completed my work of the patellofemoral space.? I then switch my portal sites to the medial working portal.? Completed the rest of my synovectomy and the rest of my examination arthroscopy was normal. All fluid was suctioned from the joint.? ?All instruments were withdrawn.? Portal sites were closed with interrupted nylon suture.? portal sites were then covered with with Xeroform 4 x 4's ABD Curlex and Marcelo wrap.? Patient was then subsequently awakened from anesthesia and taken to PACU in stable condition. Disposition: Patient taken to PACU in stable condition recovering well.? Will receive appropriate discharge instructions as well as pain medication postoperatively as well as? DVT prophylaxis.we will have patient follow-up with us in the office in 2 weeks.? We will weightbearing as tolerated to the Left lower extremity.? Patient understands and agrees with current plan.? All questions answered.
--- NOTE | 2024-11-17 08:31 | P.PCN_ITS ---
PACU note Narrative: Patient is a 59-year-old female just a left knee arthroscopy. Pt transferred to PACU in stable condition. Dressing is dry. pt is awake and alert. pt can wiggle toes and plantarflex and dorsiflex foot. pt able to perform straight leg raise, Femoral nerve intact. Distal pulses are palpable toes are warm and well- perfused. Cap refill is normal and under 2 seconds. Sensation to foot is intact. Pain is controlled. Exam: awake Disposition: discharged
--- NOTE | 2024-11-17 09:42 | SUR.PHASEII ---
HOME staff delivered a walker for patient, pharmacy delivered medications to room for patient.
--- NOTE | 2024-11-17 13:51 | ANE.PACU2 ---
Inpatient post-anesthesia follow up: Airway intact: Yes Vital signs: Temperature 97.3 F Pulse Rate 68 Respiratory Rate 17 Blood Pressure 125/92 Pulse Oximetry 95 Oxygen Delivery Me thod Nasal Cannula Oxygen Flow Rate 2 Fraction of Inspir ed Oxygen Hydration adequate: Yes Nausea and vomiting: No Pain level: 1 Mental status: Baseline
== END 2024-11-17 09:52 | disposition home or self-care (01) ==
PROVIDERS: PCP Family Medicine; Visit Provider Student in an Organized Health Care Education/Training Program
PROC: (CPT 29870; principal; 2024-11-17 07:00)
PROC: (CPT 29876; 2024-11-17 07:00)
PROC: (CPT 29876; 2024-11-17 07:00)
DX: M94.262 Chondromalacia, left knee (principal); S83.229 Peripheral tear of medial meniscus, current injury, unspecified knee; X58.XXXA Exposure to other specified factors, initial encounter; M23.612 Other spontaneous disruption of anterior cruciate ligament of left knee; M65.162 Other infective (teno)synovitis, left knee; M23.42 Loose body in knee, left knee; I10 Essential (primary) hypertension; K21.9 Gastro-esophageal reflux disease without esophagitis; F17.210 Nicotine dependence, cigarettes, uncomplicated
CPT/HCPCS: 29876; 29999; J0131; J0690; J1100; J2250; J2405; J2704; J3010; J7030; J9999

== ENCOUNTER → 2024-12-02 11:02 | Outpatient (BNVA) | payer MEDICARE, MEDICAID, SELFPAY | PROVIDERS: PCP Family Medicine; Visit Provider Physician Assistant | DX: Z98.890 Other specified postprocedural states (principal) | CPT/HCPCS: 99024 ==

== ENCOUNTER → 2025-01-24 14:20 | Outpatient (BNVA) | payer MEDICARE, MEDICAID, SELFPAY | PROVIDERS: PCP Family Medicine; Visit Provider Physician Assistant | DX: M17.11 Unilateral primary osteoarthritis, right knee (principal); Z98.890 Other specified postprocedural states | CPT/HCPCS: 20610; 73560; 73565; 99213; J3301; J9999 ==

== ENCOUNTER → 2025-03-09 09:39 | Outpatient (BNVA) | payer MEDICARE, MEDICAID, SELFPAY | PROVIDERS: PCP Family Medicine; Visit Provider Podiatrist Foot & Ankle Surgery | DX: Q82.8 Other specified congenital malformations of skin (principal) | CPT/HCPCS: 17110; 99203 ==

== ENCOUNTER → 2025-04-13 11:16 | Outpatient (BNVA) | payer MEDICARE, MEDICAID, SELFPAY | PROVIDERS: PCP Family Medicine; Visit Provider Podiatrist Foot & Ankle Surgery | DX: Q82.8 Other specified congenital malformations of skin (principal); L84 Corns and callosities | CPT/HCPCS: 17110 ==